=== PATIENT | male | born 1955 | race Caucasian/White ===

== ENCOUNTER → 2017-11-25 17:11 | Outpatient (REF) | payer BC, SELFPAY ==
[2017-11-27 10:42] LABS: Hepatitis C Ab w Rflx HCV PCR Negative (NEGAT)
[2017-11-27 10:49] LABS: PSA, Screening 1.7 ng/ml (0-4.5)
== END ==
LOC: NCHCN 17:11
PROVIDERS: PCP Internal Medicine; Visit Provider Internal Medicine
DX: Z00.00 Encounter for general adult medical examination without abnormal findings (principal); Z12.5 Encounter for screening for malignant neoplasm of prostate; Z11.59 Encounter for screening for other viral diseases
CPT/HCPCS: 84153; 86803

== ENCOUNTER 2019-03-09 11:05 | Outpatient (REF) | payer BC, SELFPAY ==
[2019-03-09 21:42] LABS: Anion Gap 10.6 mmol/L (3-11); BUN 15 mg/dL (7-18); CO2 26.4 mmol/L (21.0-32.0); CREATININE 0.96 mg/dL (0.70-1.30); Calcium 9.4 mg/dL (8.5-10.1); Calculated LDL 133 mg/dL; Chloride 102 mmol/L (98-107); Cholesterol 214 mg/dL (<200); Glucose 95 mg/dL (74-106); HDL Cholesterol 56 mg/dL (40-60); Potassium 4.7 mmol/L (3.5-5.1); Sodium 139 mmol/L (136-145); Triglyceride 125 mg/dL (<150)
== END 2019-03-09 11:25 ==
LOC: NCHCN 11:05
PROVIDERS: PCP Internal Medicine; Visit Provider Internal Medicine
DX: Z00.00 Encounter for general adult medical examination without abnormal findings (principal); I10 Essential (primary) hypertension; R06.02 Shortness of breath; J30.89 Other allergic rhinitis
CPT/HCPCS: 80048; 80061

== ENCOUNTER 2020-02-25 17:45 | Outpatient (REF) | payer BC, SELFPAY ==
[2020-02-25 21:57] LABS: Calculated LDL 134 mg/dL (<100); Cholesterol 214 mg/dL (<200); HDL Cholesterol 45 mg/dL (40-60); Triglyceride 176 mg/dL (<150)
== END 2020-02-25 18:05 ==
LOC: NCHCN 17:45
PROVIDERS: PCP Internal Medicine; Visit Provider Internal Medicine
DX: Z00.00 Encounter for general adult medical examination without abnormal findings (principal); I10 Essential (primary) hypertension
CPT/HCPCS: 80061

== ENCOUNTER 2020-10-05 22:02 | Outpatient (REF) | payer BC, SELFPAY ==
[2020-10-05 21:03] LABS: Anion Gap 8.4 mmol/L (3-11); BUN 19 mg/dL (7-18); CO2 26.6 mmol/L (21.0-32.0); Calcium 9.1 mg/dL (8.5-10.1); Chloride 105 mmol/L (98-107); Glucose 122 mg/dL (74-106); Potassium 4.8 mmol/L (3.5-5.1); Sodium 140 mmol/L (136-145)
== END 2020-10-05 22:03 | disposition home or self-care (01) ==
LOC: NCHCN 22:02
PROVIDERS: PCP Internal Medicine; Visit Provider Internal Medicine
DX: I10 Essential (primary) hypertension (principal)
CPT/HCPCS: 80048

== ENCOUNTER 2022-03-25 12:42 | Outpatient (REF) | payer BC, SELFPAY ==
[2022-03-25 15:23] LABS: Anion Gap 9.4 mmol/L (3-11); BUN 16 mg/dL (7-18); CO2 30.6 mmol/L (21.0-32.0); CREATININE 0.9 mg/dL (0.70-1.30); Calcium 9.1 mg/dL (8.5-10.1); Calculated LDL 163 mg/dL (<100); Chloride 99 mmol/L (98-107); Cholesterol 232 mg/dL (<200); Estimated GFR 94.19 (mL/min/1.73m2); Glucose 99 mg/dL (74-106); HDL Cholesterol 44 mg/dL (40-60); Potassium 4.5 mmol/L (3.5-5.1); Sodium 139 mmol/L (136-145); Triglyceride 126 mg/dL (<150)
== END 2022-03-25 12:43 | disposition home or self-care (01) ==
LOC: NCHCN 12:42
PROVIDERS: PCP Internal Medicine; Visit Provider Family Medicine
DX: Z00.00 Encounter for general adult medical examination without abnormal findings (principal); I10 Essential (primary) hypertension
CPT/HCPCS: 80048; 80061

== ENCOUNTER 2024-10-14 21:37 | Outpatient (REF) | payer MEDICARE, SELFPAY ==
[2024-10-14 22:22] LABS: ALT 45 U/L (16-63); AST 23 U/L (15-37); Albumin 4.4 g/dL (3.4-5.0); Alkaline Phosphatase 76 U/L (46-116); Anion Gap 8.5 mmol/L (3-11); BUN 21 mg/dL (7-18); Bilirubin, Total 0.6 mg/dL (0.2-1.0); CO2 29.5 mmol/L (21.0-32.0); Calcium 9.4 mg/dL (8.5-10.1); Chloride 101 mmol/L (98-107); Estimated GFR 81.98 (mL/min/1.73m2); Glucose 117 mg/dL (74-106); LDL CHOLESTEROL 171 mg/dL (<100); Potassium 4.7 mmol/L (3.5-5.1); Sodium 139 mmol/L (136-145); Total Protein 7.4 g/dL (6.4-8.2)
== END 2024-10-14 21:38 | disposition home or self-care (01) ==
LOC: NCHCN 21:37
PROVIDERS: PCP Internal Medicine; Visit Provider Family Medicine
DX: E78.5 Hyperlipidemia, unspecified (principal); I10 Essential (primary) hypertension
CPT/HCPCS: 80053; 83721